=== PATIENT | female | born 1985 | race Caucasian/White ===

== ENCOUNTER 2017-04-25 11:00 | Emergency (ER) | payer SELFPAY ==
--- NOTE | 2017-04-25 11:04 | ED.PDOC ---
History of Present Illness - General Chief Complaint: ENT Problem Stated Complaint: runny nose, chest congestion Time Seen by Provider: 04/25/17 11:02 - History of Present Illness Associated Symptoms: nasal congestion/drainage Allergies/Adverse Reactions: Allergies Prednisone Allergy (Verified 07/14/16 10:54) Past Medical History (General) - Patient Medical History Hx Seizures: No Hx Stroke: No Hx Asthma: No Hx of COPD: No Hx Cardiac Disorders: No Hx Congestive Heart Failure: No Hx Pacemaker: No Hx Hypertension: No Hx Diabetes: No Hx Gastroesophageal Reflux: No Hx Renal Disease: Yes - hx kidney stones Hx Cancer: No Hx MRSA: No - Vaccination History Hx Influenza Vaccination: No Hx Pneumococcal Vaccination: No - Social History Hx Tobacco Use: Yes Hx Substance Use: No - Female History Hx Last Menstrual Period: 05/25/14 Patient : No Expected Date of Delivery:: 03/01/15 Family Medical History - Family History Maternal Grandparents Family History: No Known Hx Family;Other: GRANDMOTHER AND COUSIN HAS MULTIPLE SCLEROSIS Mother Family History: No Known Living Status: Still Living Hx Family;Other: Chronic bronchitis alcoholism Physical Exam - Physical Exam General Appearance: No apparent distress Departure - Departure Clinical Impression: Patient left without being seen Disposition: Left Without Being Seen Departure Forms: ED Discharge - Pt. Copy, Patient Portal Self Enrollment Comments: Patient unreasonably upset given that there were critically ill patients seen ahead of this family of four with URI symptoms and normal vital signs. Patient did not want to wait any longer to be seen so she left with her family without being fully evaluated. No one in this family appeared ill, and they all had normal vital signs.
[2017-04-25 11:30] VITALS: BP 127/91; TEMP 98.3; O2SAT 96
== END 2017-04-25 13:10 | disposition left against medical advice (07) ==
LOC: ER 11:00
DX: Z53.21 Procedure and treatment not carried out due to patient leaving prior to being seen by health care provider (principal)

== ENCOUNTER 2017-07-03 17:31 | Emergency (ER) | payer SELFPAY ==
[2017-07-03 18:17] VITALS: TEMP 98.8
--- NOTE | 2017-07-03 18:42 | ED.PDOC ---
History of Present Illness - General Chief Complaint: Neck Injury/Pain Stated Complaint: NECK PAIN Time Seen by Provider: 07/03/17 18:31 Source: patient Exam Limitations: no limitations - History of Present Illness Initial Comments: Shelley Francis 32 y/o female stated she was cleaning her closet 2 days ago and lifting boxes placing it on the shelf then started having pains afterward and this morning could not turn her neck side to side because of pain. Timing/Duration: other - 2 days ago Improving Factors: rest Worsening Factors: movement Associated Symptoms: denies symptoms Allergies/Adverse Reactions: Allergies Prednisone Allergy (Verified 07/14/16 10:54) Home Medications: Ambulatory Orders Cyclobenzaprine HCl [Flexeril] 10 mg PO BID PRN #20 tab 07/03/17 Naproxen [Naprosyn] 500 mg PO BID #14 tab 07/03/17 Review of Systems - Review of Systems Constitutional: States: no symptoms reported EENTM: States: no symptoms reported Respiratory: States: no symptoms reported Cardiology: States: no symptoms reported Gastrointestinal/Abdominal: States: no symptoms reported Genitourinary: States: no symptoms reported Musculoskeletal: States: see HPI Skin: States: no symptoms reported Neurological: States: no symptoms reported Past Medical History (General) - Patient Medical History Hx Seizures: No Hx Stroke: No Hx Asthma: No Hx of COPD: No Hx Cardiac Disorders: No Hx Congestive Heart Failure: No Hx Pacemaker: No Hx Hypertension: No Hx Diabetes: No Hx Gastroesophageal Reflux: No Hx Renal Disease: Yes - hx kidney stones Hx Cancer: No Hx MRSA: No Surgical History: other - c section - Vaccination History Hx Influenza Vaccination: No Hx Pneumococcal Vaccination: No - Social History Hx Tobacco Use: Yes Hx Substance Use: No Hx Physical Abuse: No Hx Emotional Abuse: No Hx Suspected Abuse: No - Activities of Daily Living Patient Lives Alone: No - family - Female History Patient is a Female of Child Bearing Age (10 -59 yrs old): Yes Hx Last Menstrual Period: 06/18/16 Patient : No Family Medical History - Family History Maternal Grandparents Family History: No Known Hx Family;Other: GRANDMOTHER AND COUSIN HAS MULTIPLE SCLEROSIS Mother Family History: No Known Living Status: Still Living Hx Family;Other: Chronic bronchitis alcoholism Physical Exam - Physical Exam General Appearance: Alert, Anxious, No apparent distress Eye Exam: bilateral normal Ears, Nose, Throat: hearing grossly normal, normal ENT inspection, normal pharynx Neck: normal inspection, other - tenderness left side with muscle spasm ltd rom because of pain Progress - Progress Progress: 07/03/17 18:45 Vital Signs - 8 hr 07/03/17 17:48 Temperature 98.8 F Pulse Rate [ 96 H RIGHT BRACHIAL] Respiratory 20 Rate Blood Pressure 138/90 [RIGHT BRACHIAL ] O2 Sat by Pulse 97 Oximetry Departure - Departure Clinical Impression: Torticollis, acute Time of Disposition: 18:47 Disposition: Discharge to Home or Self Care Condition: Fair Departure Forms: ED Discharge - Pt. Copy, Patient Portal Self Enrollment Instructions: XAVIER Frausto for Torticollis Referrals: Ashley Cheney NP [Primary Care Provider] - 1-2 Weeks Prescriptions: Cyclobenzaprine HCl [Flexeril] 10 mg PO BID PRN #20 tab PRN Reason: Muscle Spasms Naproxen [Naprosyn] 500 mg PO BID #14 tab Home Medications: Ambulatory Orders Cyclobenzaprine HCl [Flexeril] 10 mg PO BID PRN #20 tab 07/03/17 Naproxen [Naprosyn] 500 mg PO BID #14 tab 07/03/17 Additional Instructions: Alternate ice pack/warm moist pack 20 minutes each during waking hours only until better
[2017-07-03] MEDS ORDERED: ORPHENADRINE CITRATE 30 MG/ML AMP IM ONE (18:45)
[2017-07-03] MEDS ORDERED: KETOROLAC TROMETHAMINE INJ 60 MG/2 ML VIAL IM ONE (18:45)
[2017-07-03] MEDS ORDERED: HYDROcodone 7.5MG/APAP 325MG 1 EA TAB PO ONE (18:45)
[2017-07-03 20:08] VITALS: BP 123/83; O2SAT 100
== END 2017-07-03 20:10 | disposition home or self-care (01) ==
LOC: ER 17:31
DX: M43.6 Torticollis (principal); Z88.8 Allergy status to other drugs, medicaments and biological substances; Z87.891 Personal history of nicotine dependence
CPT/HCPCS: J1885; J2360

== ENCOUNTER 2017-12-17 09:14 | Emergency (ER) | payer SELFPAY ==
[2017-12-17 09:29] VITALS: BP 110/77; TEMP 98.3; O2SAT 98
--- NOTE | 2017-12-17 09:46 | ED.PDOC ---
History of Present Illness - General Chief Complaint: ENT Problem Stated Complaint: Nasal congestion/pressure, sore throat Time Seen by Provider: 12/17/17 09:42 Source: patient Exam Limitations: no limitations - History of Present Illness Initial Comments: Shelley Francis32 y/o female stated that he had achy throat started yesterday and nasal congestion for 5 days no fever no nausea vomiting.No chronic medical problem. Timing/Duration: intermittent, other - see hpi Severity: moderate Improving Factors: nothing Worsening Factors: nothing Associated Symptoms: other - see hpi Allergies/Adverse Reactions: Allergies Prednisone Allergy (Verified 12/17/17 09:29) Rash Home Medications: Ambulatory Orders NK [NK] 12/17/17 Review of Systems - Review of Systems Constitutional: States: no symptoms reported EENTM: States: see HPI Respiratory: States: no symptoms reported Cardiology: States: no symptoms reported Gastrointestinal/Abdominal: States: no symptoms reported Genitourinary: States: no symptoms reported Skin: States: no symptoms reported Neurological: States: no symptoms reported All other Systems: Reviewed and Negative, No Change from Baseline Past Medical History (General) - Patient Medical History Hx Seizures: No Hx Stroke: No Hx Asthma: No Hx of COPD: No Hx Cardiac Disorders: No Hx Congestive Heart Failure: No Hx Pacemaker: No Hx Hypertension: No Hx Diabetes: No Hx Gastroesophageal Reflux: No Hx Renal Disease: Yes - hx kidney stones Hx Cancer: No Hx MRSA: No Surgical History: other - btl,c- section,intussuseption reduction - Vaccination History Hx Influenza Vaccination: No Hx Pneumococcal Vaccination: No - Social History Hx Tobacco Use: Yes Hx Substance Use: No Hx Physical Abuse: No Hx Emotional Abuse: No Hx Suspected Abuse: No - Female History Patient is a Female of Child Bearing Age (10 -59 yrs old): Yes Hx Last Menstrual Period: 06/18/16 Patient : No Expected Date of Delivery:: 03/01/15 Family Medical History - Family History Maternal Grandparents Family History: No Known Hx Family;Other: GRANDMOTHER AND COUSIN HAS MULTIPLE SCLEROSIS Mother Family History: No Known Living Status: Still Living Hx Family;Other: Chronic bronchitis alcoholism Physical Exam - Physical Exam General Appearance: Alert, Comfortable, No apparent distress Eye Exam: bilateral normal Ears, Nose, Throat: nasal congestion, pharyngeal erythema Neck: non-tender, supple Respiratory: chest non-tender, lungs clear, normal breath sounds, no respiratory distress Cardiovascular/Chest: normal peripheral pulses, regular rate, rhythm, no murmur Peripheral Pulses: radial,right: 2+, radial,left: 2+ Gastrointestinal/Abdominal: normal bowel sounds, non tender, soft, no organomegaly Back Exam: no CVA tenderness, no vertebral tenderness Extremity: no pedal edema, no calf tenderness Neurologic: alert, oriented x 3 Progress - Progress Progress: 12/17/17 09:50 Last Vital Signs Temp 98.3 F 12/17/17 09:25 Pulse 91 H 12/17/17 09:25 Resp 20 12/17/17 09:25 BP 110/77 12/17/17 09:25 Pulse Ox 98 12/17/17 09:25 - Results/Orders Results/Orders: Laboratory Tests 12/17/17 09:50 Group A Strep DNA Negative Departure - Departure Clinical Impression: Nasopharyngitis acute Time of Disposition: 11:07 Disposition: Discharge to Home or Self Care Departure Forms: ED Discharge - Pt. Copy, Patient Portal Self Enrollment Instructions: Complementary Therapies for the Common Cold, Common Cold ( Alternative Therapy), Common Cold, DI for Common Cold Referrals: Ashley Cheney NP [Primary Care Provider] - 1-2 Weeks Home Medications: Ambulatory Orders NK [NK] 12/17/17 Additional Instructions: May take tylenol 500 mg every 4 hours as needed for body aches /fever;nasal saline spray as needed for nasal congestion May use cough /cold medicine over the counter as directed on package insert.
== END 2017-12-17 11:20 | disposition home or self-care (01) ==
LOC: ER 09:14
DX: J00 Acute nasopharyngitis [common cold] (principal)

== ENCOUNTER 2018-04-28 10:47 | Emergency (ER) | payer SELFPAY ==
[2018-04-28 11:04] VITALS: TEMP 98.5
[2018-04-28] MEDS: SODIUM CHLORIDE 0.9% 1000ML 1,000 ML IVS ONE (11:22)
[2018-04-28] MEDS: ALUMINUM & MAGNESIUM HYDROXIDE 30 ML UD PO ONE (11:22)
[2018-04-28] MEDS: ONDANSETRON ODT 8 MG TAB SL ONE (11:22)
--- NOTE | 2018-04-28 11:31 | RAD ---
EXAM DESCRIPTION: Abdomen Series CLINICAL HISTORY: ruq pain COMPARISON: March 13, 2011 FINDINGS: AP supine and upright views of the abdomen show a nonspecific, nonobstructive bowel gas pattern with no evidence for free intraperitoneal air. No air-filled dilated loops of small bowel are seen. No significant air-fluid levels are identified. No obvious organomegaly is seen. No abnormal calcifications are seen in the expected location of the renal collecting systems. Single view of the chest shows cardiac silhouette and pulmonary vasculature to be within normal limits. Lungs are normally aerated and clear IMPRESSION: Nonspecific abdominal series Electronically signed by: Edgardo Hernandez MD 04/28/2018 11:30 AM CDT
[2018-04-28] MEDS: KETOROLAC TROMETHAMINE INJ 30 MG/ML VIAL IV ONE (12:38)
--- NOTE | 2018-04-28 13:18 | US ---
EXAM DESCRIPTION: Abdomen,Limited: ULTRASOUND. CLINICAL HISTORY: RUQ pain. COMPARISON: CT abdomen and pelvis 11/21/2016. Abdomen radiographs on this visit. TECHNIQUE: Transabdominal scannin-dimensional and Doppler modes. FINDINGS: Gallbladder: normal size, shape, echogenicity; no intraluminal stones or sludge. No fluid around the gallbladder. No wall thickening. 2.0 mm. Non-tender with transducer pressure. Common bile duct: caliber 3.4 mm within normal limits. Liver: normal echogenicity; contour liver capsule smooth where seen. No fluid around the liver. Intrahepatic biliary ducts normal caliber. Doppler hepatopedal flow portal vein.. Long axis right lobe 13.1 cm. Pancreas: normal size and echogenicity. Duct not seen. Proximal abdominal aorta: diameter. IVC: visualized and normal caliber. Right kidney: long axis measures 9.4 cm. Normal Echogenicity. Normal cortical thickness. Mild hydronephrosis IMPRESSION: Normal ultrasound of gallbladder ducts liver and pancreas. No ascites. Minimal right renal hydronephrosis. If ureteral stone is suspected, consider follow-up CT scan abdomen and pelvis. Electronically signed by: Pako Bautista MD 04/28/2018 1:17 PM CDT
[2018-04-28] MEDS ORDERED: SODIUM CHLORIDE 0.9% 50ML 50 ML ONE (13:48)
[2018-04-28] MEDS ORDERED: PROMETHAZINE HCL INJ 25 MG/ML VIAL ONE (13:48)
[2018-04-28] MEDS: PROMETHAZINE HCL INJ 25 MG in SODIUM CHLORIDE 0.9% 50ML 50 ML IVPB ONE (13:52)
--- NOTE | 2018-04-28 13:53 | CT ---
EXAM DESCRIPTION: Abdoment/Pelvis w/o Contrast CLINICAL HISTORY: 33 years, Female, possible right hydro, right sided back and abd pain COMPARISON: Ultrasound abdomen same day TECHNIQUE: CT of the abdomen and pelvis is performed according to our non contrast protocol. FINDINGS: Patient had abdominal sonogram same day which showed mild distention of the intrarenal collecting system of the right kidney. The lung bases are clear. Tiny cyst in the inferior right lobe of the liver measures 0.75 cm. Liver, spleen, and pancreas are otherwise unremarkable. The kidneys appear normal. No hydronephrosis, mass, or shadowing calculus. The degree of renal distention seen on the sonogram appears less prominent on the CT exam. Mild extrarenal pelvic prominence is present bilaterally. Normal adrenal glands. No calcified gallstones. Small bowel loops appear normal in caliber with normal wall thickness. There is no lymphadenopathy, inflammation, or free fluid observed. In the pelvis, the appendix is normal. No inflammation around the cecum or terminal ileum or sigmoid colon. No stones in the distal ureters or bladder. Rectal wall thickness is normal for degree of distention. No free fluid or mass in the pelvis. Uterus appears normal. No ovarian enlargement. No inguinal or lower pelvic adenopathy. Coronal and sagittal reformatted images confirm the findings. Tiny punctate densities at the papillary tips of the mid and lower right kidney are seen which could be early calcific nidus formation but no measurable stones are identified in either kidney or in the ureters. IMPRESSION: No diagnostic abnormality is identified on CT examination of the abdomen and pelvis. This exam was performed according to our departmental dose-optimization program, which includes automated exposure control, adjustment of the mA and/or kV according to patient size and/or use of iterative reconstruction technique. Total DLP equals 960.70 mGycm. Electronically signed by: Tom Williamson MD 04/28/2018 1:52 PM CDT
--- NOTE | 2018-04-28 14:13 | ED.PDOC ---
History of Present Illness - General Chief Complaint: Abdominal Pain Stated Complaint: abdominal pain Time Seen by Provider: 04/28/18 11:02 Source: patient Exam Limitations: no limitations - History of Present Illness Initial Comments: The patient is a 33-year-old female presenting to the emergency room secondary to right-sided abdominal and flank pain that started this morning. She is a little bit of nausea when the pain got much worse but no vomiting. No urinary symptoms. No diarrhea. No cough or sore throat. No chest pain. No history of any shingles. She has had kidney stones in the past on that side. No history of stomach ulcers.she has pain to palpation starting below the rib cage anteriorly and wrapping around towards her back. No rashes present. No bruising is present. No crepitus is present. No palpable mass. Timing/Duration: 4-6 hours Severity: moderate Improving Factors: nothing Worsening Factors: nothing Associated Symptoms: loss of appetite, nausea/vomiting Allergies/Adverse Reactions: Allergies Prednisone Allergy (Verified 04/28/18 11:04) Rash Home Medications: Ambulatory Orders Ciprofloxacin [Cipro] 500 mg PO BID #14 tab 04/28/18 Metronidazole 500 mg PO TID #20 tab 04/28/18 Ondansetron [Zofran Odt] 4 mg PO Q4H PRN #10 tab 04/28/18 Valacyclovir HCl [Valtrex] 1 gm PO Q8HR #21 tab 04/28/18 Review of Systems - Review of Systems Constitutional: States: no symptoms reported EENTM: States: no symptoms reported Respiratory: States: no symptoms reported Cardiology: States: no symptoms reported Gastrointestinal/Abdominal: States: abdominal pain, nausea. Denies: diarrhea, vomiting Genitourinary: States: no symptoms reported Musculoskeletal: States: back pain Skin: States: no symptoms reported Neurological: States: see HPI Endocrine: States: no symptoms reported All other Systems: No Change from Baseline Past Medical History (General) - Patient Medical History Hx Seizures: No Hx Stroke: No Hx Asthma: No Hx of COPD: No Hx Cardiac Disorders: No Hx Congestive Heart Failure: No Hx Pacemaker: No Hx Hypertension: No Hx Diabetes: No Hx Gastroesophageal Reflux: No Hx Renal Disease: Yes - hx kidney stones Hx Cancer: No Hx MRSA: No Surgical History: other - Vaccination History Hx Influenza Vaccination: No Hx Pneumococcal Vaccination: No - Social History Hx Tobacco Use: Yes Hx Alcohol Use: Yes - 3-4 beer daily Hx Substance Use: No Hx Physical Abuse: No Hx Emotional Abuse: No Hx Suspected Abuse: No - Female History Patient is a Female of Child Bearing Age (10 -59 yrs old): No Hx Last Menstrual Period: 06/18/16 Patient : No Expected Date of Delivery:: 03/01/15 Family Medical History - Family History Maternal Grandparents Family History: No Known Hx Family;Other: GRANDMOTHER AND COUSIN HAS MULTIPLE SCLEROSIS Mother Family History: No Known Living Status: Still Living Hx Family;Other: Chronic bronchitis alcoholism Physical Exam - Physical Exam General Appearance: Alert, No apparent distress Eye Exam: bilateral normal Ears, Nose, Throat: hearing grossly normal, normal ENT inspection, normal pharynx Neck: full range of motion, supple, normal inspection Respiratory: lungs clear, normal breath sounds, no respiratory distress, no accessory muscle use Cardiovascular/Chest: normal peripheral pulses, regular rate, rhythm, no edema Peripheral Pulses: radial,right: 2+, radial,left: 2+ Gastrointestinal/Abdominal: soft, other - see history of present illness Rectal Exam: deferred Back Exam: CVA tenderness (R) Extremity: non-tender, normal inspection, no pedal edema, normal capillary refill 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 The patient has had lab work done as well as a CT and an ultrasound. Source of the pain is not certain at this point. Most likely etiologies are very early cholecystitis versus shingles that is not developed a rash yet. The patient will actually be covered for both empirically with metronidazole and ciprofloxacin and Valtrex. She will be written for Zofran for as needed use for any nausea. She should also take Pepcid [id number] twice daily while she is taking these medications. She should follow-up with her primary care doctor before the weekend for reevaluation. ER warnings were given for any worsening. If she does start to develop a rash in that dermatome then she should discontinue the ciprofloxacin and metronidazole. - Results/Orders Results/Orders: 04/28/18 13:46 Promethazine HCl Inj [Phenergan Inj] 25 mg Sodium Chloride 0.9% 50Ml [NS 50ml ] 50 ml IVPB ONCE Laboratory Results - last 24 hr 04/28/18 04/28/18 04/28/18 11:09 11:09 11:09 WBC 5.7 RBC 4.60 Hgb 13.5 Hct 39.6 MCV 86.1 MCH 29.4 MCHC 34.1 RDW 14.0 Plt Count 224 MPV 8.2 Absolute Neuts (auto) 4.00 Absolute Lymphs (auto) 0.90 L Absolute Monos (auto) 0.50 Absolute Eos (auto) 0.20 Absolute Basos (auto) 0.10 Neutrophils % 70.5 Lymphocytes % 16.4 L Monocytes % 9.1 H Eosinophils % 3.0 Basophils % 1.0 Sodium 138 Potassium 4.0 Chloride 103 Carbon Dioxide 28 Anion Gap 11.0 L BUN 16 Creatinine 0.74 BUN/Creatinine Ratio 21.6 H Random Glucose 88 Serum Osmolality 276.3 Calcium 9.1 Total Bilirubin 0.5 AST 17 ALT 18 Alkaline Phosphatase 57 Serum Total Protein 7.8 Albumin 4.6 Globulin 3.2 Albumin/Globulin Ratio 1.4 Amylase 96 Lipase 39 Urine Color Yellow Urine Appearance Clear Urine pH 6.0 Ur Specific [place] 1.010 Urine Protein Negative Urine Glucose (UA) Negative Urine Ketones Negative Urine Blood Negative Urine Nitrite Negative Urine Bilirubin Negative Urine Urobilinogen 0.2 Ur Leukocyte Esterase Negative Urine RBC 0 Urine WBC 0-1 Ur Epithelial Cells 1-3 Urine Bacteria 0 acute abdominal series is negative .CT scan of abdomen and pelvis shows no evidence of any acute pathology. No hydronephrosis. No obstructing ureterolithiasis. No evidence of cholecystitis. right upper quadrant ultrasound shows mild right-sided hydronephrosis. No evidence of acute cholecystitis. No evidence of acute liver pathology. No evidence of any obstruction. Departure - Departure Clinical Impression: Abdominal pain Qualifiers: Abdominal location: right upper quadrant Qualified Code(s): R10.11 - Right upper quadrant pain Disposition: Discharge to Home or Self Care Condition: Fair Departure Forms: ED Discharge - Pt. Copy, Patient Portal Self Enrollment Diet: regular diet Activity: increase activity as tolerated Referrals: Ashley Cheney NP [Primary Care Provider] - 1-5 Days Prescriptions: Valacyclovir HCl [Valtrex] 1 gm PO Q8HR #21 tab Ciprofloxacin [Cipro] 500 mg PO BID #14 tab Metronidazole 500 mg PO TID #20 tab Ondansetron [Zofran Odt] 4 mg PO Q4H PRN #10 tab PRN Reason: Vomiting Home Medications: Ambulatory Orders Ciprofloxacin [Cipro] 500 mg PO BID #14 tab 04/28/18 Metronidazole 500 mg PO TID #20 tab 04/28/18 Ondansetron [Zofran Odt] 4 mg PO Q4H PRN #10 tab 04/28/18 Valacyclovir HCl [Valtrex] 1 gm PO Q8HR #21 tab 04/28/18 Additional Instructions: the patient's a 33-year-old female presenting to the emergency room secondary to right upper quadrant and flank pain of a short duration. The patient has had lab work done as well as a CT and an ultrasound. Source of the pain is not certain at this point. Most likely etiologies are very early cholecystitis versus shingles that is not developed a rash yet. The patient will actually be covered for both empirically with metronidazole and ciprofloxacin and Valtrex. She will be written for Zofran for as needed use for any nausea. She should also take Pepcid [id number] twice daily while she is taking these medications. She should follow-up with her primary care doctor before the weekend for reevaluation. ER warnings were given for any worsening. If she does start to develop a rash in that dermatome then she should discontinue the ciprofloxacin and metronidazole.
[2018-04-28 14:31] VITALS: BP 121/77; O2SAT 95
== END 2018-04-28 14:30 | disposition home or self-care (01) ==
LOC: ER 10:47
DX: R10.11 Right upper quadrant pain (principal); R11.0 Nausea; Z87.442 Personal history of urinary calculi; Z87.891 Personal history of nicotine dependence
CPT/HCPCS: 36415; 74019; 74176; 76775; 80053; 81001; 82150; 83690; 85025; A4216; J1885; J2550; J7030

== ENCOUNTER 2018-06-11 14:27 | Emergency (ER) | payer SELFPAY ==
[2018-06-11 14:55] VITALS: TEMP 98
[2018-06-11] MEDS ORDERED: KETOROLAC TROMETHAMINE INJ 60 MG/2 ML VIAL IM ONE (15:28)
--- NOTE | 2018-06-11 15:30 | ED.PDOC ---
History of Present Illness - General Chief Complaint: ENT Problem Time Seen by Provider: 06/11/18 15:28 Source: patient Exam Limitations: no limitations - History of Present Illness Initial Comments: patient comes in today with 1 week history of worsening right-sided jaw pain. Patient stated the pain is now radiating to her ear and her neck and she wasn't sure if perhaps she had an ear infection. She has an appointment pending with the dentist but that will be for several weeks and so she didn't want to be evaluated. She has no fever, chills, nausea or vomiting. She does know that she grinds her teeth and has chronic tension in that TM J area. She is otherwise healthy and has no past medical history with the exception of migraine headaches. Patient had a recent bronchitis infection but that resolved about a week ago. She currently is not on any medication and has had a tubal ligation in her past. Timing/Duration: last week Severity: severe EENT Location: dental Prearrival Treatment: no prearrival treatment Improving Factors: nothing Worsening Factors: nothing Associated Symptoms: denies symptoms Allergies/Adverse Reactions: Allergies Prednisone Allergy (Verified 04/28/18 11:04) Rash Home Medications: Ambulatory Orders Ciprofloxacin [Cipro] 500 mg PO BID #14 tab 04/28/18 Metronidazole 500 mg PO TID #20 tab 04/28/18 Ondansetron [Zofran Odt] 4 mg PO Q4H PRN #10 tab 04/28/18 Valacyclovir HCl [Valtrex] 1 gm PO Q8HR #21 tab 04/28/18 Review of Systems - Review of Systems Constitutional: States: no symptoms reported. Denies: diaphoresis, fever, weakness EENTM: States: see HPI Respiratory: States: no symptoms reported. Denies: short of breath, wheezing Cardiology: States: no symptoms reported. Denies: chest pain Gastrointestinal/Abdominal: States: no symptoms reported Genitourinary: States: no symptoms reported Past Medical History (General) - Patient Medical History Hx Seizures: No Hx Stroke: No Hx Dementia: No Hx Asthma: No Hx of COPD: No Hx Cardiac Disorders: No Hx Congestive Heart Failure: No Hx Pacemaker: No Hx Hypertension: No Hx Thyroid Disease: No Hx Diabetes: No Hx Gastroesophageal Reflux: No Hx Renal Disease: No Hx Cancer: No Hx of HIV: No Hx Hepatitis C: No Hx MRSA: No - Vaccination History Hx Tetanus, Diphtheria Vaccination: No Hx Influenza Vaccination: No Hx Pneumococcal Vaccination: No Immunizations Up to Date: No - Social History Hx Tobacco Use: Yes Hx Chewing Tobacco Use: No Hx Alcohol Use: No Hx Substance Use: No Hx Substance Use Treatment: No Hx Depression: No Feels Threatened In Home Enviroment: No Feels Threatened In a Relationship: No Hx Physical Abuse: No Hx Emotional Abuse: No Hx Suspected Abuse: No - Female History Patient is a Female of Child Bearing Age (10 -59 yrs old): Yes Hx Last Menstrual Period: 06/18/16 Patient : No Expected Date of Delivery:: 03/01/15 Family Medical History - Family History Maternal Grandparents Family History: No Known Hx Family;Other: GRANDMOTHER AND COUSIN HAS MULTIPLE SCLEROSIS Mother Family History: No Known Living Status: Still Living Hx Family;Other: Chronic bronchitis alcoholism Physical Exam - Physical Exam General Appearance: No apparent distress Eye Exam: bilateral normal Ear Exam: bilateral ear: auricle normal, canal normal, TM normal Nasal Exam: normal inspection Throat Exam: normal mouth inspection, pharynx normal, other - Tenderness to Right upper molar with no erythema, edema, or definite lesion Neck: full range of motion, supple, normal inspection, trachea midline Cardiovascular/Respiratory: regular rate, rhythm, no M/R/G, normal breath sounds , no respiratory distress Abdominal Exam: non-tender Neurologic: alert, oriented x 3 Departure - Departure Clinical Impression: Pain, dental Disposition: Discharge to Home or Self Care Condition: Good Departure Forms: ED Discharge - Pt. Copy, Patient Portal Self Enrollment Diet: regular diet Referrals: Ashley Cheney NP [Primary Care Provider] - 1-2 Weeks Home Medications: Ambulatory Orders Ciprofloxacin [Cipro] 500 mg PO BID #14 tab 04/28/18 Metronidazole 500 mg PO TID #20 tab 04/28/18 Ondansetron [Zofran Odt] 4 mg PO Q4H PRN #10 tab 04/28/18 Valacyclovir HCl [Valtrex] 1 gm PO Q8HR #21 tab 04/28/18 Additional Instructions: follow up with dentist in 1-2 days. OTC IBU for pain.
[2018-06-11 16:08] VITALS: BP 124/74; O2SAT 99
== END 2018-06-11 16:08 | disposition home or self-care (01) ==
LOC: ER 14:27
DX: K08.89 Other specified disorders of teeth and supporting structures (principal); R68.84 Jaw pain; Z88.8 Allergy status to other drugs, medicaments and biological substances

== ENCOUNTER 2018-10-24 11:29 | Emergency (ER) | payer SELFPAY ==
--- NOTE | 2018-10-24 12:25 | ED.PDOC ---
History of Present Illness - General Chief Complaint: Problem Stated Complaint: late period Time Seen by Provider: 10/24/18 11:37 Source: patient Exam Limitations: no limitations - History of Present Illness Initial Comments: the patient is a 33-year-old female presenting to the emergency room secondary to having delayed menstruation. The patient's period is approximately one week late. She reports that her cycles are normally very regular. She is having some very mild right lower quadrant discomfort as well. She's been having some very mild spotting as well. She has had a tubal ligation in the past and so she is concerned for the possibility of an ectopic . Vital signs are stable. The patient is pleasant and cooperative. Timing/Duration: unsure Severity: mild Improving Factors: nothing Worsening Factors: nothing Allergies/Adverse Reactions: Allergies Prednisone Allergy (Verified 04/28/18 11:04) Rash Home Medications: Ambulatory Orders NK [NK] 10/24/18 Review of Systems - Review of Systems Constitutional: States: no symptoms reported EENTM: States: no symptoms reported Respiratory: States: no symptoms reported Cardiology: States: no symptoms reported Gastrointestinal/Abdominal: States: abdominal pain - mild Genitourinary: States: see HPI Musculoskeletal: States: no symptoms reported Skin: States: no symptoms reported Neurological: States: no symptoms reported Endocrine: States: no symptoms reported All other Systems: No Change from Baseline Past Medical History (General) - Patient Medical History Hx Seizures: No Hx Stroke: No Hx Dementia: No Hx Asthma: No Hx of COPD: No Hx Cardiac Disorders: No Hx Congestive Heart Failure: No Hx Pacemaker: No Hx Hypertension: No Hx Thyroid Disease: No Hx Diabetes: No Hx Gastroesophageal Reflux: No Hx Renal Disease: No Hx Cancer: No Hx of HIV: No Hx Hepatitis C: No Hx MRSA: No - Vaccination History Hx Tetanus, Diphtheria Vaccination: No Hx Influenza Vaccination: No Hx Pneumococcal Vaccination: No - Social History Hx Tobacco Use: Yes Hx Chewing Tobacco Use: No Hx Alcohol Use: No Hx Substance Use: No Hx Substance Use Treatment: No Hx Depression: No Hx Physical Abuse: No Hx Emotional Abuse: No Hx Suspected Abuse: No - Female History Patient is a Female of Child Bearing Age (10 -59 yrs old): Yes Hx Last Menstrual Period: 06/18/16 Patient : No Expected Date of Delivery:: 03/01/15 Family Medical History - Family History Maternal Grandparents Family History: No Known Hx Family;Other: GRANDMOTHER AND COUSIN HAS MULTIPLE SCLEROSIS Mother Family History: No Known Living Status: Still Living Hx Family;Other: Chronic bronchitis alcoholism Physical Exam - Physical Exam General Appearance: Alert, Comfortable, No apparent distress Eye Exam: bilateral normal Ears, Nose, Throat: hearing grossly normal Neck: full range of motion Respiratory: no respiratory distress, no accessory muscle use Cardiovascular/Chest: normal peripheral pulses, no edema Peripheral Pulses: radial,right: 2+, radial,left: 2+ Gastrointestinal/Abdominal: non tender - obese, soft Rectal Exam: deferred Back Exam: no CVA tenderness, no vertebral tenderness Extremity: non-tender, normal inspection, no pedal edema, normal capillary refill 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 The patient's period is late this month by 1 week. She has had a tubal ligation. Urinalysis is clear here and the test is negative. vital signs are stable. The patient should keep follow-up with her primary care doctor. If menstrual irregularities are becoming a more frequent issue in the future, then additional workup may be warranted. ER warnings were given. - Results/Orders Results/Orders: Laboratory Results - last 24 hr 10/24/18 10/24/18 11:38 11:46 Urine Color Yellow Urine Appearance Clear Urine pH 6.0 Ur Specific [place] 1.015 Urine Protein Negative Urine Glucose (UA) Negative Urine Ketones Negative Urine Blood Negative Urine Nitrite Negative Urine Bilirubin Negative Urine Urobilinogen 0.2 Ur Leukocyte Esterase Negative Urine RBC 0 Urine WBC 0 Ur Epithelial Cells 3-5 Urine Bacteria Rare Urine HCG, Qual Negative Departure - Departure Clinical Impression: Menstrual cycle problem Disposition: Discharge to Home or Self Care Condition: Fair Departure Forms: ED Discharge - Pt. Copy, Patient Portal Self Enrollment Instructions: Menstrual Cramps (DC) Diet: regular diet Activity: increase activity as tolerated Referrals: Candace Donovan NP [Primary Care Provider] - 1-2 Weeks Home Medications: Ambulatory Orders NK [NK] 10/24/18 Additional Instructions: the patient is a 33-year-old female presenting to emergency room secondary to menstrual irregularity. The patient's period is late this month by 1 week. She has had a tubal ligation. Urinalysis is clear here and the test is negative. vital signs are stable. The patient should keep follow-up with her primary care doctor. If menstrual irregularities are becoming a more frequent issue in the future, then additional workup may be warranted. ER warnings were given.
[2018-10-24 12:40] VITALS: BP 115/80; TEMP 98.5; O2SAT 98
== END 2018-10-24 12:38 | disposition home or self-care (01) ==
LOC: ER 11:29
DX: N91.2 Amenorrhea, unspecified (principal); R10.31 Right lower quadrant pain; Z98.51 Tubal ligation status; Z87.891 Personal history of nicotine dependence; Z88.8 Allergy status to other drugs, medicaments and biological substances

== ENCOUNTER → 2018-11-03 | Outpatient (CLI) | payer MEDICAID | LOC: YCFC.O 11:56 | DX: Z01.411 Encounter for gynecological examination (general) (routine) with abnormal findings (principal); N92.1 Excessive and frequent menstruation with irregular cycle ==

== ENCOUNTER → 2018-12-15 | Outpatient (CLI) | payer MEDICAID ==
--- NOTE | 2018-12-15 14:27 | US ---
EXAM DESCRIPTION: Breast,Right: Ultrasound CLINICAL HISTORY: 33 yearsFemaleBREAST LUMP. Remote family history of breast cancer. No personal history of breast cancer. No genetic testing. Pain lateral and upper outer quadrant right breast. Pain in right axilla. Multiple previous episodes of mastitis under the nipple. COMPARISON: None. TECHNIQUE: Transcutaneous scanning of the right breast utilizing valenzuela-scale and Doppler modes. Scanning performed by the house painter helper ; monitored by Dr. Bautista. FINDINGS: No palpable mass on physical examination. Scanning of the upper outer quadrant of the right breast and retroareolar breast. Scanning of the right axilla. Predominantly fibroglandular echotexture with minimal islands of fatty tissue. Circumscribed hypoechoic mass in the right axilla measuring 12 x 8 x 8 mm with homogeneous echogenic center but no vascularity. Most likely a lymph node. No dominant solid mass. No distinct cyst. No parenchymal edema or large calcifications. No abnormal vascularity. No overlying skin changes. IMPRESSION: Benign exam. BIRAD CATEGORY: 2 BENIGN FINDINGS. RECOMMENDATIONS: FOLLOW UP: Routine digital bilateral mammographic screening, beginning at age 40. Any follow-up breast imaging at this time should be based upon the criteria described below*. The FINDINGS and the FOLLOW-UP plan were reviewed in person with the patient after the examination. Written communication explaining the IMPRESSION and FOLLOW-UP will be mailed to the patient and referring care provider. *According to the [employer], yearly mammograms are recommended starting at age 40 and continuing as long as a woman is in good health. Any breast change noted on a breast self-exam should be reported promptly to the patient's healthcare provider. Breast MRI is recommended for women with an approximately 20-25% or greater lifetime risk of breast cancer, including women with a strong family history of breast or ovarian cancer and women who have been treated for Hodgkin's disease. A negative mammographic report should not delay tissue diagnosis in patients with significant clinical history or physical findings. Extremely dense breast tissue limits the sensitivity of digital mammography. Electronically signed by: Pako Bautista MD 12/15/2018 2:26 PM FAST FOOD ATTENDANT
== END ==
LOC: MAMMO 10:00
PROVIDERS: ATTEND Nurse Practitioner Family
DX: N63.0 Unspecified lump in unspecified breast (principal)

== ENCOUNTER 2018-12-24 10:11 | Emergency (ER) | payer SELFPAY ==
--- NOTE | 2018-12-24 11:09 | ED.PDOC ---
History of Present Illness - General Chief Complaint: General Stated Complaint: skin rash Time Seen by Provider: 12/24/18 10:54 Source: patient Exam Limitations: no limitations - History of Present Illness Initial Comments: Shelley Francis 33 y/o female stated she had an itchy rash which started on her both lower leg and gradually spreading to her thighs.Denies fever ,achy th roat,/N/V/D ill contact or travel outside [place]. Timing/Duration: other - 3-5 days Severity: moderate Location: extremities - see hpi Improving Factors: nothing Worsening Factors: nothing Associated Symptoms: denies symptoms, other - see hpi Allergies/Adverse Reactions: Allergies Prednisone Allergy (Verified 04/28/18 11:04) Rash Home Medications: Ambulatory Orders hydrOXYzine HCl [Atarax] 50 mg PO Q8HRS PRN #30 tab 12/24/18 predniSONE 0 mg PO BID 5 Days #10 tab 12/24/18 Review of Systems - Review of Systems Constitutional: States: no symptoms reported EENTM: States: no symptoms reported Respiratory: States: no symptoms reported Cardiology: States: no symptoms reported Gastrointestinal/Abdominal: States: no symptoms reported Genitourinary: States: no symptoms reported Musculoskeletal: States: no symptoms reported Skin: States: see HPI Neurological: States: no symptoms reported All other Systems: Reviewed and Negative, No Change from Baseline Past Medical History (General) - Patient Medical History Hx Seizures: No Hx Stroke: No Hx Dementia: No Hx Asthma: No Hx of COPD: No Hx Cardiac Disorders: No Hx Congestive Heart Failure: No Hx Pacemaker: No Hx Hypertension: No Hx Thyroid Disease: No Hx Diabetes: No Hx Gastroesophageal Reflux: No Hx Renal Disease: No Hx Cancer: No Hx of HIV: No Hx Hepatitis C: No Hx MRSA: No Surgical History: other - btl ;intussuception reduction - Vaccination History Hx Tetanus, Diphtheria Vaccination: No Hx Influenza Vaccination: No Hx Pneumococcal Vaccination: No - Social History Hx Tobacco Use: Yes Hx Chewing Tobacco Use: No Hx Alcohol Use: No Hx Substance Use: No Hx Substance Use Treatment: No Hx Depression: No Hx Physical Abuse: No Hx Emotional Abuse: No Hx Suspected Abuse: No - Activities of Daily Living Patient Lives Alone: No - Female History Patient is a Female of Child Bearing Age (10 -59 yrs old): Yes Hx Last Menstrual Period: 12/24/18 Patient : No Family Medical History - Family History Maternal Grandparents Family History: No Known Hx Family;Other: GRANDMOTHER AND COUSIN HAS MULTIPLE SCLEROSIS Mother Family History: No Known Living Status: Still Living Hx Family;Other: Chronic bronchitis alcoholism Physical Exam - Physical Exam General Appearance: Alert, Comfortable, No apparent distress Eyes, Ears, Nose, Throat Exam: PERRL/EOMI, normal ENT inspection, pharynx normal Neck: non-tender, full range of motion, supple, normal inspection Cardiovascular/Chest: normal peripheral pulses, regular rate, rhythm, no murmur Respiratory: chest non-tender, lungs clear, normal breath sounds Gastrointestinal/Abdominal: non tender, soft, no organomegaly Back Exam: normal inspection, no CVA tenderness Extremity: no pedal edema, no calf tenderness Neurologic: alert, oriented x 3 Skin Exam: warm/dry, normal color Skin Problem Location: lower extremities Skin Character: macules Lymphatic: no adenopathy Progress - Progress Progress: 12/24/18 11:20 Vital Signs - 8 hr 12/24/18 10:15 Temperature 98.5 F Pulse Rate [ 98 H Left Radial] Respiratory 18 Rate Blood Pressure 145/82 [Left Arm] O2 Sat by Pulse 95 Oximetry Departure - Departure Clinical Impression: Skin rash Time of Disposition: 11:14 Disposition: Discharge to Home or Self Care Condition: Fair Departure Forms: ED Discharge - Pt. Copy, Patient Portal Self Enrollment Instructions: Skin Rash, Skin Rash (DC) Referrals: Candace Donovan CUT PRESSMAN [Primary Care Provider] - 1-2 Weeks Prescriptions: hydrOXYzine HCl [Atarax] 50 mg PO Q8HRS PRN #30 tab PRN Reason: Allergies predniSONE 0 mg PO BID 5 Days #10 tab Home Medications: Ambulatory Orders hydrOXYzine HCl [Atarax] 50 mg PO Q8HRS PRN #30 tab 12/24/18 predniSONE 0 mg PO BID 5 Days #10 tab 12/24/18 Additional Instructions: Follow up with primary Md 27 December 2018 for re check as needed;return to ER if symptoms worsens
[2018-12-24] MEDS ORDERED: hydrOXYzine HCl 50 MG/ML VIAL IM ONE (11:12)
[2018-12-24] MEDS ORDERED: methylPREDNISolone SODIUM SUC 40 MG/ML VIAL IM ONE (11:12)
[2018-12-24 11:19] VITALS: BP 145/82; TEMP 98.5; O2SAT 95
== END 2018-12-24 12:04 | disposition home or self-care (01) ==
LOC: ER 10:11
DX: R21 Rash and other nonspecific skin eruption (principal); Z88.8 Allergy status to other drugs, medicaments and biological substances
CPT/HCPCS: J1030; J3410

== ENCOUNTER 2019-10-14 12:20 | Emergency (ER) | payer SELFPAY ==
[2019-10-14] MEDS ORDERED: SODIUM CHLORIDE 0.9% (FLUSH) 10 ML SYG IV PRN (12:21)
--- NOTE | 2019-10-14 12:25 | ED.PDOC ---
History of Present Illness - General Chief Complaint: Chest Pain/KS Stated Complaint: Chest pressure Time Seen by Provider: 10/14/19 12:21 Source: patient, RN notes reviewed, Vital Signs reviewed Exam Limitations: no limitations - History of Present Illness Initial Comments: 34 yo F with no PMH presents with chest pressure. States after eating breakfast at 0700 this morning, she began to feel a tugging/pressure sensation in her chest that goes to her back. Symptoms are 2/10 on scale. Has felt SOB. Denies chest pain, abdominal pain, nausea, vomiting, cough, fever or recent illness. LMP was yesterday. Allergies/Adverse Reactions: Allergies Prednisone Allergy (Verified 04/28/18 11:04) Rash Home Medications: Ambulatory Orders hydrOXYzine HCl [Atarax] 50 mg PO Q8HRS PRN #30 tab 12/24/18 predniSONE 0 mg PO BID 5 Days #10 tab 12/24/18 Review of Systems - Review of Systems Constitutional: Denies: chills, fever, weakness EENTM: Denies: blurred vision, ear pain, throat pain Respiratory: States: short of breath. Denies: cough, wheezing Cardiology: Denies: edema, palpitations, syncope Gastrointestinal/Abdominal: Denies: abdominal pain, nausea, vomiting Genitourinary: Denies: dysuria, frequency Musculoskeletal: States: back pain. Denies: muscle pain, neck pain Neurological: States: anxiety. Denies: headache All other Systems: Reviewed and Negative Past Medical History (General) - Patient Medical History Hx Seizures: No Hx Stroke: No Hx Dementia: No Hx Asthma: No Hx of COPD: No Hx Cardiac Disorders: No Hx Congestive Heart Failure: No Hx Pacemaker: No Hx Hypertension: No Hx Thyroid Disease: No Hx Diabetes: No Hx Gastroesophageal Reflux: No Hx Renal Disease: No Hx Cancer: No Hx of HIV: No Hx Hepatitis C: No Hx MRSA: No - Vaccination History Hx Tetanus, Diphtheria Vaccination: No Hx Influenza Vaccination: No Hx Pneumococcal Vaccination: No - Social History Hx Tobacco Use: Yes Hx Chewing Tobacco Use: No Hx Alcohol Use: No Hx Substance Use: No Hx Substance Use Treatment: No Hx Depression: No Hx Physical Abuse: No Hx Emotional Abuse: No Hx Suspected Abuse: No - Female History Hx Last Menstrual Period: 12/24/18 Patient : No Expected Date of Delivery:: 03/01/15 Family Medical History - Family History Maternal Grandparents Family History: No Known Hx Family;Other: GRANDMOTHER AND COUSIN HAS MULTIPLE SCLEROSIS Mother Family History: No Known Living Status: Still Living Hx Family;Other: Chronic bronchitis alcoholism Physical Exam - Physical Exam General Appearance: Alert, Anxious, No apparent distress Neck: non-tender, full range of motion, supple Respiratory: chest non-tender, lungs clear, normal breath sounds, no respiratory distress, respiratory distress Cardiovascular/Chest: normal peripheral pulses, regular rate, rhythm, no edema, no murmur Gastrointestinal/Abdominal: non tender, soft, no pulsatile mass, other - NTTP in all quadrants Back Exam: normal inspection, no vertebral tenderness, other - No muscular tenderness to back or neck Extremity: normal range of motion, non-tender, normal inspection, no calf tenderness Neurologic: no motor/sensory deficits, alert Progress - Progress Progress: 10/14/19 14:18 pt presents with chest tightness. EKG, troponin, D dimer, CXR and other labs reassuring. No sign of ACS, PE, dissection, ptx at this time. pt feels improved and comfortable going home and will f/u with pcp as outpatient for continued evaluation. SRP given. - Results/Orders Results/Orders: EKG-- NSR, rate 98, normal intervals, no ST wave abnormality CXR-- No acute abnormality seen 10/14/19 12:21 Sodium Chloride 0.9% (Flush) [Saline Flush Syringe] 3 ml IV PRN PRN 10/14/19 12:22 Oxygen Stat Chest,1 View [RAD] Stat 10/14/19 12:23 Oxygen Delivery Assessment: QSHIFT Pulse Oximetry Assessment DAILY 10/14/19 12:30 EKG STAT 10/15/19 09:00 Pulse Ox Daily Laboratory Results - last 24 hr 10/14/19 10/14/19 10/14/19 12:48 12:48 12:48 WBC 5.0 RBC 4.47 Hgb 11.4 L Hct 35.3 L MCV 78.9 L MCH 25.5 L MCHC 32.3 L RDW 15.6 H Plt Count 224 MPV 7.7 Absolute Neuts (auto) 3.50 Absolute Lymphs (auto) 0.70 L Absolute Monos (auto) 0.50 Absolute Eos (auto) 0.10 Absolute Basos (auto) 0.00 Neutrophils % 71.5 Lymphocytes % 14.9 L Monocytes % 9.9 H Eosinophils % 2.9 Basophils % 0.8 D-Dimer, Quantitative 0.38 Sodium 138 Potassium 4.0 Chloride 100 L Carbon Dioxide 25 Anion Gap 17.0 BUN 14 Creatinine 0.87 BUN/Creatinine Ratio 16.1 Random Glucose 94 Serum Osmolality 275.9 Calcium 9.4 Total Bilirubin 0.3 AST 22 ALT 22 Alkaline Phosphatase 59 Troponin I Serum Total Protein 8.0 Albumin 4.6 Globulin 3.4 Albumin/Globulin Ratio 1.4 TSH Serum HCG, Qual 10/14/19 10/14/19 10/14/19 12:48 12:48 12:48 WBC RBC Hgb Hct MCV MCH MCHC RDW Plt Count MPV Absolute Neuts (auto) Absolute Lymphs (auto) Absolute Monos (auto) Absolute Eos (auto) Absolute Basos (auto) Neutrophils % Lymphocytes % Monocytes % Eosinophils % Basophils % D-Dimer, Quantitative Sodium Potassium Chloride Carbon Dioxide Anion Gap BUN Creatinine BUN/Creatinine Ratio Random Glucose Serum Osmolality Calcium Total Bilirubin AST ALT Alkaline Phosphatase Troponin I < 0.02 Serum Total Protein Albumin Globulin Albumin/Globulin Ratio TSH 0.67 Serum HCG, Qual Negative Departure - Departure Clinical Impression: Atypical chest pain Time of Disposition: 14:17 Disposition: Discharge to Home or Self Care Condition: Good Departure Forms: ED Discharge - Pt. Copy, Patient Portal Self Enrollment Instructions: DI for Chest Pain Diet: resume usual diet Referrals: Candace Donovan NP [Primary Care Provider] - 1-2 Weeks Home Medications: Ambulatory Orders hydrOXYzine HCl [Atarax] 50 mg PO Q8HRS PRN #30 tab 12/24/18 predniSONE 0 mg PO BID 5 Days #10 tab 12/24/18
[2019-10-14 13:08] VITALS: O2SAT 99
[2019-10-14 14:21] VITALS: BP 110/66
--- NOTE | 2019-10-14 14:21 | RAD ---
EXAM DESCRIPTION: Chest,1 View CLINICAL HISTORY: 34 years Female, chest pain COMPARISON: None. TECHNIQUE: AP portable chest. FINDINGS: Heart size is normal with normal pulmonary vascularity. No consolidating infiltrate. No pulmonary mass or worrisome nodule. No pneumothorax or pleural effusion. Bones are unremarkable. IMPRESSION: No acute process is identified in the chest. Electronically signed by: Tom Williamson MD 10/14/2019 2:19 PM [facility]
[2019-10-14 14:27] VITALS: TEMP 97.5
== END 2019-10-14 14:25 | disposition home or self-care (01) ==
LOC: ER 12:20
DX: R07.89 Other chest pain (principal); Z87.891 Personal history of nicotine dependence

== ENCOUNTER 2020-03-23 07:57 | Emergency (ER) | payer SELFPAY ==
[2020-03-23] MEDS ORDERED: PROMETHAZINE HCL INJ 25 MG in SODIUM CHLORIDE 0.9% 50ML 50 ML IVPB ONE (08:05)
[2020-03-23] MEDS ORDERED: KETOROLAC TROMETHAMINE INJ 30 MG/ML VIAL IM ONE (08:05)
[2020-03-23] MEDS ORDERED: SODIUM CHLORIDE 0.9% 1000ML 1,000 ML IVS ONE (08:05)
--- NOTE | 2020-03-23 08:34 | RAD ---
EXAM DESCRIPTION: Abdomen Series CLINICAL HISTORY: 35 years Female, acute right suprapubic ttp COMPARISON: Radiograph of the chest dated 10/14/2019. TECHNIQUE: Acute abdominal series was performed. FINDINGS: CHEST: Trachea is midline. The cardiac silhouette is normal in size. Lungs are clear with no acute consolidation. ABDOMEN: Constipation. No definite evidence of bowel obstruction. No abnormal calcifications. IMPRESSION: Constipation. Electronically signed by: Cecilia Quintero MD 03/23/2020 8:33 AM CDT
[2020-03-23] MEDS ORDERED: SODIUM CHLORIDE 0.9% 50ML 50 ML ONE (08:43)
[2020-03-23] MEDS ORDERED: PROMETHAZINE HCL INJ 25 MG/ML VIAL ONE (08:43)
--- NOTE | 2020-03-23 09:53 | US ---
EXAM DESCRIPTION: Abdomen,Limited CLINICAL HISTORY: 35 years Female, rlq/suprapubic pain, hernia vs torsed ovary vs oth COMPARISON: None. TECHNIQUE: Ultrasound of the right inguinal region in the area of pain was performed. FINDINGS: No focal abnormality is noted in the right lower quadrant in the area of concern. Few lymph nodes are identified the largest measuring up to 1.1 cm. IMPRESSION: Few right inguinal lymph nodes measuring up to 1.1 cm. No other abnormality is noted. Electronically signed by: Cecilia Quintero MD 03/23/2020 9:51 AM CDT
--- NOTE | 2020-03-23 09:56 | US ---
EXAM DESCRIPTION: Pelvis Transvaginal CLINICAL HISTORY: 35 years Female, right lower qud pain COMPARISON: None. TECHNIQUE: Multiple static transverse and longitudinal sonographic images of the pelvis were obtained transvaginally. FINDINGS: The uterus is neutral in orientation. It measures 7.7 x 4.9 x 3.6 cm. The endometrial stripe measures 1 cm in thickness. Few tiny nabothian cysts are noted in the cervix. The right ovary measures 2.9 x 2.8 x 2.1 cm and demonstrates normal ovarian follicles. In addition there is a 0.8 x 1.2 x 0.7 cm complex appearing cyst in the right ovary which could represent a hemorrhagic/corpus luteum cyst. The left ovary measures 1.6 x 1.7 x 2.1 cm and appears normal. Normal blood flow is noted to both ovaries. IMPRESSION: 1. No evidence of ovarian torsion. 2. 0.8 x 1.2 x 0.7 cm complex appearing cyst is noted in the right ovary which could represent a hemorrhagic/corpus luteum cyst. Follow-up with pelvic ultrasound is recommended in 6-12 weeks. Electronically signed by: Cecilia Quintero MD 03/23/2020 9:54 AM CDT
[2020-03-23] MEDS ORDERED: HYDROcodone 7.5MG/APAP 325MG 1 EA TAB PO ONE (10:19)
--- NOTE | 2020-03-23 10:19 | ED.PDOC ---
History of Present Illness - General Chief Complaint: Abdominal Pain Stated Complaint: Right Groin Time Seen by Provider: 03/23/20 07:58 Source: patient Exam Limitations: no limitations - History of Present Illness Initial Comments: The patient is a 35-year-old female presented emergency room secondary to severe acute onset of lower abdominal pain just right to the center with some radiation down her right leg. It started abruptly this morning while she was just sitting there. With the severe pain she does get vomiting. She has passed kidney stones in the past with a somewhat similar pattern of pain. There is actually tenderness to palpation over the area that she is hurting however. No urinary symptoms. No fever. No more lateral right lower quadrant pain. No pain to the actual anterior thigh. No palpable mass. No syncope or near syncope. No chest pain. No vaginal discharge. No dysuria. No frequency. She has had her tubes tied. Onset of pain was instantaneous. She had no pain prior. Timing/Duration: 1/2 hour Severity: severe Improving Factors: medication Worsening Factors: movement Associated Symptoms: denies symptoms Allergies/Adverse Reactions: Allergies Prednisone Allergy (Mild, Verified 03/23/20 09:32) Rash Home Medications: Ambulatory Orders hydrOXYzine HCl [Atarax] 50 mg PO Q8HRS PRN #30 tab 12/24/18 predniSONE 0 mg PO BID 5 Days #10 tab 12/24/18 Ondansetron Odt [Zofran ODT] 4 mg PO Q8HR PRN #5 tab 03/23/20 Tramadol HCl 50 mg PO Q8HR PRN #20 tab 03/23/20 Review of Systems - Review of Systems Constitutional: States: no symptoms reported EENTM: States: no symptoms reported Respiratory: States: no symptoms reported Cardiology: States: no symptoms reported Gastrointestinal/Abdominal: States: abdominal pain, constipation, nausea, vomiting Genitourinary: States: no symptoms reported Musculoskeletal: States: no symptoms reported Skin: States: no symptoms reported Neurological: States: no symptoms reported Endocrine: States: no symptoms reported All other Systems: No Change from Baseline Past Medical History (General) - Patient Medical History Hx Seizures: No Hx Stroke: No Hx Dementia: No Hx Asthma: No Hx of COPD: No Hx Cardiac Disorders: No Hx Congestive Heart Failure: No Hx Pacemaker: No Hx Hypertension: No Hx Thyroid Disease: No Hx Diabetes: No Hx Gastroesophageal Reflux: No Hx Renal Disease: No Hx Cancer: No Hx of HIV: No Hx Hepatitis C: No Hx MRSA: No Surgical History: other - Vaccination History Hx Tetanus, Diphtheria Vaccination: No Hx Influenza Vaccination: No Hx Pneumococcal Vaccination: No - Social History Hx Tobacco Use: Yes Cigarettes Packs Per Day: 1 Hx Chewing Tobacco Use: No Hx Alcohol Use: Yes Hx Substance Use: No Hx Substance Use Treatment: No Hx Depression: No Hx Physical Abuse: No Hx Emotional Abuse: No Hx Suspected Abuse: No - Female History Patient is a Female of Child Bearing Age (10 -59 yrs old): Yes Hx Last Menstrual Period: 03/02/20 Patient : No Expected Date of Delivery:: 03/01/15 Family Medical History - Family History Maternal Grandparents Family History: No Known Hx Family;Other: GRANDMOTHER AND COUSIN HAS MULTIPLE SCLEROSIS Mother Family History: No Known Living Status: Still Living Hx Family;Other: Chronic bronchitis alcoholism Physical Exam - Physical Exam General Appearance: Alert, Obvious distress Eye Exam: bilateral normal Ears, Nose, Throat: hearing grossly normal, normal ENT inspection Neck: full range of motion, supple Respiratory: lungs clear, normal breath sounds, no respiratory distress, no accessory muscle use Cardiovascular/Chest: normal peripheral pulses, regular rate, rhythm, no edema Peripheral Pulses: radial,right: 2+, radial,left: 2+ Gastrointestinal/Abdominal: soft, other - See history of present illness Rectal Exam: deferred Back Exam: no CVA tenderness, no vertebral tenderness Extremity: non-tender, normal inspection, no pedal edema, normal capillary refill 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 Source of this is still not entirely certain. It is possible the patient may still be passing a small kidney stone however there is no blood in the urine. She is well-hydrated. Pain did improve significantly with a dose of Toradol. Patient does have significant constipation and I would recommend taking a dose of milk of magnesia daily for the next 3 to 4 days. She needs to increase her fluid intake as well. Transvaginal ultrasound shows what may be a small right ovarian cyst with mild internal hemorrhage. No evidence of torsion. This may be the source of the pain. It is recommended that the patient have a repeat ultrasound in 6 weeks. Vital signs are remaining stable. No generalized peritonitis. It is also possible that the pain, given the location may be coming from a very tiny new inguinal or femoral hernia site, too small to be seen by ultrasound. Certainly no evidence of any trapped bowel. The patient needs to twist and turn and move around. This may help dislodge any omentum that may be trapped causing any pain. The patient will be written for tramadol for as needed use as well as Zofran for as needed use. ER warnings are given for any worsening. Certainly if symptoms are worsening or not improving over the next day or 2 then additional work-up including CT scan and additional blood work and exam may be warranted. I would like for her to follow-up with her primary care doctor early next week for repeat evaluation. ER warnings are given. jayme weaver [id number] [facility] consulted - Results/Orders Results/Orders: X-ray of the abdomen shows no free air. No obstruction. She does have significant constipation. Transvaginal ultrasound shows possibly a small right ovarian cyst with possibly mild internal hemorrhage. Repeat ultrasound is recommended in 6 weeks. No evidence of significant free fluid in the abdomen. No evidence of torsion. Right lower quadrant ultrasound shows mild lymphadenopathy with lymph nodes at 1.1 cm. No obvious hernias or other acute abnormalities. Laboratory Results - last 24 hr 03/23/20 03/23/20 03/23/20 08:50 08:50 08:50 WBC 4.8 RBC 4.07 L Hgb 10.7 L Hct 32.8 L MCV 80.5 L MCH 26.4 L MCHC 32.8 L RDW 17.1 H Plt Count 181 MPV 7.8 Absolute Neuts (auto) 3.20 Absolute Lymphs (auto) 0.90 L Absolute Monos (auto) 0.60 Absolute Eos (auto) 0.10 Absolute Basos (auto) 0.00 Neutrophils % 65.7 Lymphocytes % 18.7 L Monocytes % 12.0 H Eosinophils % 2.7 Basophils % 0.9 Sodium 134 L Potassium 3.7 Chloride 104 Carbon Dioxide 24 Anion Gap 9.7 L BUN 14 Creatinine 0.79 BUN/Creatinine Ratio 17.7 Random Glucose 94 Serum Osmolality 268.5 L Lactic Acid Calcium 8.7 Total Bilirubin 0.4 AST 18 ALT 15 Alkaline Phosphatase 51 Serum Total Protein 6.9 Albumin 4.1 Globulin 2.8 Albumin/Globulin Ratio 1.5 Amylase 83 Lipase 49 Serum HCG, Qual Urine Color Urine Appearance Urine pH Ur Specific [place] Urine Protein Urine Glucose (UA) Urine Ketones Urine Blood Urine Nitrite Urine Bilirubin Urine Urobilinogen Ur Leukocyte Esterase Urine RBC Urine WBC Ur Epithelial Cells Urine Bacteria 03/23/20 03/23/20 03/23/20 08:50 08:50 09:14 WBC RBC Hgb Hct MCV MCH MCHC RDW Plt Count MPV Absolute Neuts (auto) Absolute Lymphs (auto) Absolute Monos (auto) Absolute Eos (auto) Absolute Basos (auto) Neutrophils % Lymphocytes % Monocytes % Eosinophils % Basophils % Sodium Potassium Chloride Carbon Dioxide Anion Gap BUN Creatinine BUN/Creatinine Ratio Random Glucose Serum Osmolality Lactic Acid 1.0 Calcium Total Bilirubin AST ALT Alkaline Phosphatase Serum Total Protein Albumin Globulin Albumin/Globulin Ratio Amylase Lipase Serum HCG, Qual Negative Urine Color Yellow Urine Appearance Clear Urine pH 6.0 Ur Specific [place] 1.020 Urine Protein Negative Urine Glucose (UA) Negative Urine Ketones Negative Urine Blood Negative Urine Nitrite Negative Urine Bilirubin Negative Urine Urobilinogen 0.2 Ur Leukocyte Esterase Negative Urine RBC 0 Urine WBC 0 Ur Epithelial Cells 5-10 Urine Bacteria Rare - EKG/XRAY/CT CT Ordered: No Departure - Departure Clinical Impression: Lower abdominal pain Ovarian cyst Qualifiers: Laterality: right Qualified Code(s): N83.201 - Unspecified ovarian cyst, right side Constipation Qualifiers: Constipation type: unspecified constipation type Qualified Code(s): K59.00 - Constipation, unspecified Disposition: Discharge to Home or Self Care Condition: Fair Departure Forms: ED Discharge - Pt. Copy, Patient Portal Self Enrollment Instructions: Constipation, Adult (DC), Ovarian Cyst (DC) Diet: bland diet Activity: increase activity as tolerated Prescriptions: Ondansetron Odt [Zofran ODT] 4 mg PO Q8HR PRN #5 tab PRN Reason: Nausea--Moderate Tramadol HCl 50 mg PO Q8HR PRN #20 tab PRN Reason: Moderate Pain Home Medications: Ambulatory Orders hydrOXYzine HCl [Atarax] 50 mg PO Q8HRS PRN #30 tab 12/24/18 predniSONE 0 mg PO BID 5 Days #10 tab 12/24/18 Ondansetron Odt [Zofran ODT] 4 mg PO Q8HR PRN #5 tab 03/23/20 Tramadol HCl 50 mg PO Q8HR PRN #20 tab 03/23/20 Additional Instructions: The patient is a 35-year-old female presented emergency room with acute onset lower abdominal pain very severe in nature. Source of this is still not entirely certain. It is possible the patient may still be passing a small kidney stone however there is no blood in the urine. She is well-hydrated. Pain did improve significantly with a dose of Toradol. Patient does have significant constipation and I would recommend taking a dose of milk of magnesia daily for the next 3 to 4 days. She needs to increase her fluid intake as well. Transvaginal ultrasound shows what may be a small right ovarian cyst with mild internal hemorrhage. No evidence of torsion. This may be the source of the pain. It is recommended that the patient have a repeat ultrasound in 6 weeks. Vital signs are remaining stable. No generalized peritonitis. It is also possible that the pain, given the location may be coming from a very tiny new inguinal or femoral hernia site, too small to be seen by ultrasound. Certainly no evidence of any trapped bowel. The patient needs to twist and turn and move around. This may help dislodge any omentum that may be trapped causing any pain. The patient will be written for tramadol for as needed use as well as Zofran for as needed use. ER warnings are given for any worsening. Certainly if symptoms are worsening or not improving over the next day or 2 then additional work-up including CT scan and additional blood work and exam may be warranted. I would like for her to follow-up with her primary care doctor early next week for repeat evaluation. ER warnings are given.
[2020-03-23 11:01] VITALS: BP 128/74; TEMP 98.5; O2SAT 99
== END 2020-03-23 10:50 | disposition home or self-care (01) ==
LOC: ER 07:57
DX: R10.30 Lower abdominal pain, unspecified (principal); N83.201 Unspecified ovarian cyst, right side; R11.10 Vomiting, unspecified; K59.00 Constipation, unspecified; F17.200 Nicotine dependence, unspecified, uncomplicated
CPT/HCPCS: 36415; 74019; 76775; 76830; 80053; 81001; 82150; 83605; 83690; 84703; 85025; A4216; J1885; J2550; J7030

== ENCOUNTER 2020-03-25 00:40 | Emergency (ER) | payer SELFPAY ==
--- NOTE | 2020-03-25 01:05 | ED.PDOC ---
History of Present Illness - General Time Seen by Provider: 03/25/20 01:00 Additional Information: Patient is a 35-year-old female who presents to the ED with chief complaint of shortness of breath. Patient indicates that shortness of breath began earlier today has progressively gotten worse such that she is unable to sleep tonight. Patient denies cough, chest pain, fever. She denies history of blood clots but indicates there is a family history of clots. Patient denies any intrinsic h eart or lung issues. She indicates she does not have anxiety disorder. Patient denies use of illicit street drugs. Patient indicates she was seen here in the ED yesterday for leg pain and prescribed Tramadol She wonders if her symptoms are an adverse reaction to the tramadol. - History of Present Illness Allergies/Adverse Reactions: Allergies Prednisone Allergy (Mild, Verified 03/23/20 09:32) Rash Home Medications: Ambulatory Orders hydrOXYzine HCl [Atarax] 50 mg PO Q8HRS PRN #30 tab 12/24/18 predniSONE 0 mg PO BID 5 Days #10 tab 12/24/18 Ondansetron Odt [Zofran ODT] 4 mg PO Q8HR PRN #5 tab 03/23/20 Tramadol HCl 50 mg PO Q8HR PRN #20 tab 03/23/20 Acetaminophen W/ Codeine [Tylenol W/ CODEINE #3] 2 ea PO Q6H PRN #20 03/25/20 Review of Systems - Review of Systems Constitutional: Denies: chills, fever EENTM: States: no symptoms reported Respiratory: States: short of breath. Denies: cough, orthopnea, wheezing Cardiology: States: no symptoms reported, palpitations. Denies: chest pain Gastrointestinal/Abdominal: States: no symptoms reported. Denies: abdominal pain, nausea, vomiting Genitourinary: States: no symptoms reported Musculoskeletal: States: no symptoms reported. Denies: muscle pain Skin: States: no symptoms reported, other - Pain to the inner thighs Neurological: States: no symptoms reported Hematologic/Lymphatic: States: no symptoms reported All other Systems: Reviewed and Negative Past Medical History (General) - Patient Medical History Hx Seizures: No Hx Stroke: No Hx Dementia: No Hx Asthma: No Hx of COPD: No Hx Cardiac Disorders: No Hx Congestive Heart Failure: No Hx Pacemaker: No Hx Hypertension: No Hx Thyroid Disease: No Hx Diabetes: No Hx Gastroesophageal Reflux: No Hx Renal Disease: No Hx Cancer: No Hx of HIV: No Hx Hepatitis C: No Hx MRSA: No - Vaccination History Hx Tetanus, Diphtheria Vaccination: No Hx Influenza Vaccination: No Hx Pneumococcal Vaccination: No - Social History Hx Tobacco Use: Yes Hx Chewing Tobacco Use: No Hx Alcohol Use: Yes Hx Substance Use: No Hx Substance Use Treatment: No Hx Depression: No Hx Physical Abuse: No Hx Emotional Abuse: No Hx Suspected Abuse: No - Female History Hx Last Menstrual Period: 03/02/20 Patient : No Expected Date of Delivery:: 03/01/15 Family Medical History - Family History Maternal Grandparents Family History: No Known Hx Family;Other: GRANDMOTHER AND COUSIN HAS MULTIPLE SCLEROSIS Mother Family History: No Known Living Status: Still Living Hx Family;Other: Chronic bronchitis alcoholism Physical Exam - Physical Exam General Appearance: Alert, Anxious, Obvious distress, Obese Neck: supple, normal inspection Respiratory: lungs clear, normal breath sounds, respiratory distress - Mild, accessory muscle use, other - No wheezes, rales, or rhonchi Cardiovascular/Chest: normal peripheral pulses, no edema, no gallop, no JVD, no murmur, tachycardia Gastrointestinal/Abdominal: normal bowel sounds, non tender, no organomegaly Extremity: normal range of motion, non-tender, normal inspection, no pedal loly a, no calf tenderness 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 03/25/20 03:09 Patient feeling much better at this time. Her work-up is unremarkable including her EKG, troponin and d-dimer. I discussed with patient it is unclear the precise nature of patient's shortness of breath but anxiety may be contributing to her symptoms. Patient believes that the Tramadol that she was prescribed yesterday for her leg pain is the culprit and we will discontinue that medication and I will discharge patient with T3 instead. Vital signs stable, patient is NAD and looks clinically well and I believe is safe for discharge with outpatient follow-up. Follow-up instructions, discharge instructions and return to ED precautions discussed with patient. Patient voices understanding and willingness to comply with instructions. All laboratory and radiographic results have been discussed with the patient, and all questions answered. Patient is happy with plan. 03/25/20 03:14 - EKG/XRAY/CT Comments: EKG: Normal sinus rhythm, rate 95, normal axis, normal QRS, normal ST and T Departure - Departure Clinical Impression: Shortness of breath Disposition: Discharge to Home or Self Care Condition: Good Instructions: Shortness of Breath (Dyspnea) Referrals: CRISTIN JAQUEZ MD [Active Staff] - 1-5 Days Prescriptions: Acetaminophen W/ Codeine [Tylenol W/ CODEINE #3] 2 ea PO Q6H PRN #20 PRN Reason: Pain Home Medications: Ambulatory Orders hydrOXYzine HCl [Atarax] 50 mg PO Q8HRS PRN #30 tab 12/24/18 predniSONE 0 mg PO BID 5 Days #10 tab 12/24/18 Ondansetron Odt [Zofran ODT] 4 mg PO Q8HR PRN #5 tab 03/23/20 Tramadol HCl 50 mg PO Q8HR PRN #20 tab 03/23/20 Acetaminophen W/ Codeine [Tylenol W/ CODEINE #3] 2 ea PO Q6H PRN #20 03/25/20
--- NOTE | 2020-03-25 01:18 | RAD ---
EXAM: XR Chest, 1 View CLINICAL HISTORY: 35 years old Female; shortness of breath. TECHNIQUE: Frontal view of the chest. COMPARISON: Similar examination performed 10/14/2019 which demonstrated no acute process by report. FINDINGS: LUNGS: Lungs clear of new focal infiltrate or mass. PLEURAL SPACE: No increasing pleural fluid. No pneumothorax. HEART: Heart size stable. MEDIASTINUM: Unremarkable. BONES/JOINTS: No acute bony abnormality seen. UPPER ABDOMEN: Noted again is some eventration of the right hemidiaphragm. IMPRESSION: - No acute cardiopulmonary pathology seen and no interval change from a similar examination performed 10/14/2019. Thank you for allowing us to participate in the care of this patient. Electronically signed by: Haja Centeno MD 03/25/2020 1:16 AM CDT
[2020-03-25 01:28] VITALS: TEMP 99.2
[2020-03-25 03:58] VITALS: O2SAT 100
[2020-03-25 04:07] VITALS: BP 131/86
== END 2020-03-25 03:30 | disposition home or self-care (01) ==
LOC: ER 00:40
DX: R06.02 Shortness of breath (principal)
CPT/HCPCS: 71045; 80053; 83605; 84484; 84703; 85025; 85379; 85610; 87040; 93005; J2060